=== PATIENT | male | born 1930 | race Caucasian/White ===

== ENCOUNTER 2017-01-08 18:51 | Inpatient (IN) ==
[2017-01-08] MEDS ORDERED: SODIUM CHLORIDE 0.9% 500 ML IV STA (19:22)
[2017-01-08 20:18] LABS: Apearance,Urine CLEAR (Clear); Bilirubin,Urine Negative (Negative); Blood, Urine Negative (Negative); Glucose,Urine (UA) Negative (Negative); Hyaline Casts,Urine 4 /LPF (0-3); Ketones,Urine Negative (Negative); Nitrite,Urine Negative (Negative); Protein,Urine Negative; Squamous Epithelial Cell,Urine Occasional /HPF (0-10); Urine Color Yellow (Yellow); Urine Specific Gravity 1.009 (1.001-1.035); Urine Urobilinogen < 2.0 EU/DL (0.2-1.0); WBC,Urine <1 /HPF (0-6)
[2017-01-08 20:57] LABS: Basophils % 0.8 % (0.0-0.8); Eosinophils # 0.1 10*3/uL (0.0-0.87); Eosinophils % 2.5 % (0.00-10.9); Hematocrit 39.2 VOL% (42.0-52.0); Hemoglobin 12.7 GM/DL (14.0-18.0); Immature Granulocytes % 0.6 %; Immature Granulocytes Absolute 0.03 #; Lymphocytes % 18.8 % (21.2-54.2); Mean Corpuscular HGB Conc 32.4 GM/DL (32-36); Mean Corpuscular Hemoglobin 26 PG (27-34); Mean Corpuscular Volume 79.8 FL (87-102); Mean Platelet Volume 9.8 FL (9.6-12.0); Monocytes # 0.6 10*3/uL (0.11-0.8); Monocytes % 11.1 % (1.7-12.7); Neutrophils # 3.4 10*3/uL (1.4-7.4); Neutrophils % 66.2 % (38.7-73.9); Platelet Count 173 T/CUMM (130-400); Red Blood Count 4.91 MC/CUMM (3.8-5.5); Red Cell Distribution Width 16.4 % (9.3-17.3); White Blood Count 5.1 T/CUMM (4-12)
[2017-01-08 21:13] LABS: PT Patient Result 10.7 SECS; Partial Thromboplastin Time 27.1 SECS (0-40)
[2017-01-08 21:17] LABS: Alanine Aminotransferase 19 U/L (16-61); Albumin 3.3 G/DL (3.4-5.0); Alkaline Phosphatase 128 U/L (45-117); Aspartate Amino Transferase 19 U/L (0-37); Blood Urea Nitrogen 20 MG/DL (7-18); Calcium 8.5 MG/DL (8.5-10.1); Glucose 83 MG/DL (74-106); Osmolality,Calculated 280.4 MOS/KG (273-304); Potassium 4.1 MMOL/L (3.5-5.1); Sodium 140 MMOL/L (136-145); Total Protein 7.3 G/DL (6.4-8.3); Troponin I Only < 0.015 NG/ML (0.00-0.045)
[2017-01-09] MEDS ORDERED: ACETAMINOPHEN 325 MG TABLET PO PRN (00:47)
[2017-01-09] MEDS ORDERED: DOCUSATE SODIUM 100 MG CAPSULE PO PRN (00:47)
[2017-01-09] MEDS ORDERED: FUROSEMIDE 40 MG TABLET PO PRN (00:47)
[2017-01-09] MEDS: SODIUM CHLORIDE 0.9% 1,000 ML IV SCH ×2 (01:24→13:12)
[2017-01-09 06:32] LABS: Basophils % 0.6 % (0.0-0.8); Eosinophils # 0.2 10*3/uL (0.0-0.87); Hematocrit 37.4 VOL% (42.0-52.0); Immature Granulocytes % 0.6 %; Immature Granulocytes Absolute 0.03 #; Lymphocytes # 1.2 10*3/uL (1.4-4.0); Lymphocytes % 23.6 % (21.2-54.2); Mean Corpuscular HGB Conc 32.1 GM/DL (32-36); Mean Corpuscular Hemoglobin 26 PG (27-34); Mean Corpuscular Volume 80.8 FL (87-102); Mean Platelet Volume 9.8 FL (9.6-12.0); Monocytes # 0.6 10*3/uL (0.11-0.8); Monocytes % 11.7 % (1.7-12.7); Neutrophils % 59.5 % (38.7-73.9); Platelet Count 161 T/CUMM (130-400); Red Blood Count 4.63 MC/CUMM (3.8-5.5); Red Cell Distribution Width 16.6 % (9.3-17.3)
[2017-01-09 07:12] LABS: Albumin 3.1 G/DL (3.4-5.0); Bilirubin,Total 1.3 MG/DL (0.2-1.0); Calcium 7.9 MG/DL (8.5-10.1); Magnesium 2.3 MG/DL (1.8-2.4); Osmolality,Calculated 279.4 MOS/KG (273-304); Potassium 4.2 MMOL/L (3.5-5.1); Risk Ratio 6.39; Total Protein 6.6 G/DL (6.4-8.3); VLDL CHOLESTEROL 29.4 MG/DL
[2017-01-09] MEDS: ENOXAPARIN 30 MG/0.3 ML SYRINGE SUBCUT SCH (09:32)
[2017-01-09] MEDS: COLCHICINE 0.6 MG TABLET PO SCH ×2 (09:32→21:12)
[2017-01-09] MEDS: DONEPEZIL 10 MG TABLET PO SCH (21:12)
[2017-01-09] MEDS: TEMAZEPAM 15 MG CAPSULE PO SCH (21:12)
[2017-01-09] MEDS: ESCITALOPRAM 10 MG TABLET PO SCH (21:12)
[2017-01-09] MEDS: ALLOPURINOL 100 MG TABLET PO SCH (21:12)
[2017-01-10] MEDS: SODIUM CHLORIDE 0.9% 1,000 ML IV SCH ×2 (02:09→04:35)
[2017-01-10 06:19] LABS: Calcium 7.8 MG/DL (8.5-10.1)
[2017-01-10 06:20] LABS: Osmolality,Calculated 278.5 MOS/KG (273-304); Potassium 4.6 MMOL/L (3.5-5.1)
[2017-01-10] MEDS: COLCHICINE 0.6 MG TABLET PO SCH ×2 (09:40→20:33)
[2017-01-10] MEDS: ENOXAPARIN 30 MG/0.3 ML SYRINGE SUBCUT SCH (09:41)
[2017-01-10] MEDS: ALLOPURINOL 100 MG TABLET PO SCH (20:33)
[2017-01-10] MEDS: TEMAZEPAM 15 MG CAPSULE PO SCH (20:33)
[2017-01-10] MEDS: DONEPEZIL 10 MG TABLET PO SCH (20:33)
[2017-01-10] MEDS: ESCITALOPRAM 10 MG TABLET PO SCH (20:33)
[2017-01-11] MEDS: SODIUM CHLORIDE 0.9% 1,000 ML IV SCH ×2 (07:45→23:32)
[2017-01-11] MEDS: ENOXAPARIN 30 MG/0.3 ML SYRINGE SUBCUT SCH (09:45)
[2017-01-11] MEDS: COLCHICINE 0.6 MG TABLET PO SCH ×2 (09:45→20:34)
[2017-01-11] MEDS: ESCITALOPRAM 10 MG TABLET PO SCH (20:34)
[2017-01-11] MEDS: TEMAZEPAM 15 MG CAPSULE PO SCH (20:34)
[2017-01-11] MEDS: DONEPEZIL 10 MG TABLET PO SCH (20:34)
[2017-01-11] MEDS: ALLOPURINOL 100 MG TABLET PO SCH (20:34)
[2017-01-12] MEDS: COLCHICINE 0.6 MG TABLET PO SCH (09:39)
[2017-01-12] MEDS: ENOXAPARIN 30 MG/0.3 ML SYRINGE SUBCUT SCH (09:39)
[2017-01-12] MEDS: SODIUM CHLORIDE 0.9% 1,000 ML IV SCH (09:51)
[2017-01-12 17:08] VITALS: BP 130/76
== END 2017-01-12 16:15 | disposition swing bed (61) | DRG 884 ==
LOC: EDBD → EDUNIT# → N.ED 18:51 → N.EDINP 23:38 → SUATTDRO 23:38 → N.5E 01-09 00:19
PROVIDERS: ADMIT Internal Medicine Geriatric Medicine; ATTEND Family Medicine